=== PATIENT | male | born 1960 | race Caucasian/White ===

== ENCOUNTER 2017-02-25 05:55 | Day surgery (SDC) | payer OTHER ==
[~2017-02-25 05:55] MED LIST: FEROSUL325 M1 PO; OMEPRAZOLE20 M4 PO; ONDANSETRON HCL8 M1 PO; PROCHLORPERAZIN10 M1 PO; STOOL SOFTENER100 M2 PO; TYLENOL325 M2 PO; ZANTAC150 M1 PO
[2017-02-25 06:32] LABS: BASO % 0.8 % (0-2); EOS % 3.5 % (0-7); EOSINOPHIL ABSOLUTE COUNT 0.2 tho/cmm (0.0-0.7); HCT-HEMATOCRIT 44.2 % (36.0-53.5); HGB-HEMOGLOBIN 15.5 gm/dl (13.5-17.0); IMMATURE GRANULOCYTES ABSOLUTE 0.01 tho/cmm (0-0.03); IMMATURE GRANULOCYTES PERCENT 0.2 % (0-0.3); LYMPH % 25.1 % (20-45); LYMPH ABSOLUTE COUNT 1.3 tho/cmm (0.8-4.5); MCH (MEAN CORPUSCULAR HGB) 32.2 pg (28.0-32.0); MCHC MEAN CORPUSCULAR HGB CONC 35.1 % (32.0-36.0); MCV (MEAN CELL VOLUME) 91.7 fl (82.0-96.0); MEAN PLATELET VOLUME 8.3 cmc (9.4-12.4); MONOCYTE ABSOLUTE COUNT 1.1 tho/cmm (0.0-1.2); NEUTROPHIL ABSOLUTE COUNT 2.5 tho/cmm (1.6-8.0); NEUTROPHIL-AUTOMATED 2.5 tho/cmm (1.6-8.0); NEUTROPHILS % 49.4 % (40-80); PLATELET COUNT 165 tho/cmm (150-450); RED BLOOD COUNT 4.82 mil/cmm (4.40-5.70); RED CELL DISTRIBUTION WIDTH 14.6 % (12.4-16.4); WHITE BLOOD COUNT 5.1 tho/cmm (4.0-10.0)
[2017-02-25 06:36] LABS: PROTHROMBIN TIME 11.9 SECONDS (9.0-13.6)
[2017-06-03] MEDS ORDERED: OMEPRAZOLE20 M3 PO (15:54)
[2017-06-03] MEDS ORDERED: MULTIVITAMINS1 EAC7 PO (15:54)
[2017-06-03] MEDS ORDERED: TYLENOL EXTRA500 M1 PO (15:54)
[2017-07-21] MEDS ORDERED: STIVARGA40 MG PO (14:04)
[2017-07-23] MEDS ORDERED: COLACE100 M1 PO (12:07)
[2017-07-23] MEDS ORDERED: SENOKOT-S TABL1 EACH PO (12:08)
[2017-07-23] MEDS ORDERED: MILK OF MAGNESIA PO (12:08)
[2017-07-23] MEDS ORDERED: MORPHINE S20 MG/1 M1 PO (12:18)
== END 2017-02-25 12:25 ==
LOC: US 05:55 → SHSB 06:02
PROVIDERS: Radiology Diagnostic Radiology
PROC: 0FB13ZX Excision of Right Lobe Liver, Percutaneous Approach, Diagnostic (ICD-10-PCS; principal; 2017-02-25)
DX: C78.7 Secondary malignant neoplasm of liver and intrahepatic bile duct (principal); C18.2 Malignant neoplasm of ascending colon; M19.90 Unspecified osteoarthritis, unspecified site; K21.9 Gastro-esophageal reflux disease without esophagitis; R63.4 Abnormal weight loss; F41.9 Anxiety disorder, unspecified; K59.00 Constipation, unspecified; G62.0 Drug-induced polyneuropathy; Z68.1 Body mass index [BMI] 19.9 or less, adult; Z79.899 Other long term (current) drug therapy; Z87.891 Personal history of nicotine dependence; Z98.890 Other specified postprocedural states
CPT/HCPCS: J2250; J3010; J7030

== ENCOUNTER 2017-03-09 20:23 | Inpatient (IN) | payer OTHER ==
[2017-03-09 21:44] LABS: HCT-HEMATOCRIT 45.5 % (36.0-53.5); HGB-HEMOGLOBIN 16.2 gm/dl (13.5-17.0); MCH (MEAN CORPUSCULAR HGB) 31.9 pg (28.0-32.0); MCHC MEAN CORPUSCULAR HGB CONC 35.6 % (32.0-36.0); MCV (MEAN CELL VOLUME) 89.6 fl (82.0-96.0); MEAN PLATELET VOLUME 8.3 cmc (9.4-12.4); NEUTROPHIL-AUTOMATED 4.5 tho/cmm (1.6-8.0); PLATELET COUNT 191 tho/cmm (150-450); RED BLOOD COUNT 5.08 mil/cmm (4.40-5.70); RED CELL DISTRIBUTION WIDTH 14.1 % (12.4-16.4); WHITE BLOOD COUNT 6.9 tho/cmm (4.0-10.0)
[2017-03-09 21:59] LABS: ALB/GLOB RATIO 0.6 (0.8-2.0); ALBUMIN 3.4 g/dl (3.5-5.0); ALKALINE PHOSPHATASE 179 U/L (33-138); ALT/SGPT 24 U/L (12-78); BILIRUBIN,TOTAL 0.8 mg/dl (0.0-1.5); BLOOD UREA NITROGEN 17 mg/dl (6-24); CALCIUM 9.4 mg/dl (8.5-10.5); CARBON DIOXIDE-VENOUS 29 mmol/L (22-32); CHLORIDE 94 mmol/l (96-110); CREATININE 1.19 mg/dl (0.60-1.30); GLUCOSE 105 mg/dL (70-110); LIPASE 134 U/L (73-393); SODIUM 135 mmol/L (135-145); eGFR VALUE FOR BLACK 78 mL/Min
[2017-03-09 22:01] LABS: ANION GAP 16 mmol/L (0-20); AST/SGOT 62 U/L (10-40); POTASSIUM 3.5 mmol/L (3.7-5.1)
[2017-03-09 22:06] LABS: BAND % 1 % (0-20); BAND ABSOLUTE COUNT 0.1 tho/cmm (0-2.0)
[2017-03-10 05:16] LABS: BASO % 0.9 % (0-2); BASO ABSOLUTE COUNT 0.1 tho/cmm (0.0-0.2); EOS % 3.7 % (0-7); EOSINOPHIL ABSOLUTE COUNT 0.2 tho/cmm (0.0-0.7); HCT-HEMATOCRIT 40.6 % (36.0-53.5); HGB-HEMOGLOBIN 14.2 gm/dl (13.5-17.0); IMMATURE GRANULOCYTES ABSOLUTE 0.02 tho/cmm (0-0.03); IMMATURE GRANULOCYTES PERCENT 0.3 % (0-0.3); LYMPH % 13.2 % (20-45); LYMPH ABSOLUTE COUNT 0.9 tho/cmm (0.8-4.5); MCH (MEAN CORPUSCULAR HGB) 31.6 pg (28.0-32.0); MCV (MEAN CELL VOLUME) 90.4 fl (82.0-96.0); MEAN PLATELET VOLUME 8.3 cmc (9.4-12.4); MONO % 15.4 % (0-12); NEUTROPHIL ABSOLUTE COUNT 4.3 tho/cmm (1.6-8.0); NEUTROPHIL-AUTOMATED 4.3 tho/cmm (1.6-8.0); NEUTROPHILS % 66.5 % (40-80); PLATELET COUNT 157 tho/cmm (150-450); RED BLOOD COUNT 4.49 mil/cmm (4.40-5.70); RED CELL DISTRIBUTION WIDTH 14.4 % (12.4-16.4); WHITE BLOOD COUNT 6.4 tho/cmm (4.0-10.0)
[2017-03-10 05:25] LABS: ALB/GLOB RATIO 0.6 (0.8-2.0); ALBUMIN 2.7 g/dl (3.5-5.0); ALKALINE PHOSPHATASE 135 U/L (33-138); ALT/SGPT 21 U/L (12-78); ANION GAP 11 mmol/L (0-20); AST/SGOT 54 U/L (10-40); BILIRUBIN,TOTAL 0.9 mg/dl (0.0-1.5); BLOOD UREA NITROGEN 16 mg/dl (6-24); CALCIUM 8.5 mg/dl (8.5-10.5); CARBON DIOXIDE-VENOUS 29 mmol/L (22-32); CHLORIDE 99 mmol/l (96-110); CREATININE 0.81 mg/dl (0.60-1.30); GLUCOSE 98 mg/dL (70-110); POTASSIUM 3.5 mmol/L (3.7-5.1); SODIUM 135 mmol/L (135-145); eGFR VALUE FOR BLACK >90 mL/Min
[2017-03-11 05:45] LABS: HGB-HEMOGLOBIN 13.5 gm/dl (13.5-17.0); PLATELET COUNT 144 tho/cmm (150-450)
[2017-03-11 05:53] LABS: ANION GAP 14 mmol/L (0-20); BLOOD UREA NITROGEN 13 mg/dl (6-24); CALCIUM 8.1 mg/dl (8.5-10.5); CARBON DIOXIDE-VENOUS 23 mmol/L (22-32); CHLORIDE 105 mmol/l (96-110); CREATININE 0.68 mg/dl (0.60-1.30); GLUCOSE 78 mg/dL (70-110); MAGNESIUM 1.8 mg/dl (1.8-2.6); POTASSIUM 3.7 mmol/L (3.7-5.1); SODIUM 138 mmol/L (135-145); eGFR VALUE FOR BLACK >90 mL/Min
[2017-03-13 05:47] LABS: BASO % 0.1 % (0-2); EOS % 0.1 % (0-7); HCT-HEMATOCRIT 40.7 % (36.0-53.5); HGB-HEMOGLOBIN 14.2 gm/dl (13.5-17.0); IMMATURE GRANULOCYTES ABSOLUTE 0.05 tho/cmm (0-0.03); IMMATURE GRANULOCYTES PERCENT 0.4 % (0-0.3); LYMPH % 4.9 % (20-45); LYMPH ABSOLUTE COUNT 0.7 tho/cmm (0.8-4.5); MCH (MEAN CORPUSCULAR HGB) 31.4 pg (28.0-32.0); MCHC MEAN CORPUSCULAR HGB CONC 34.9 % (32.0-36.0); MEAN PLATELET VOLUME 8.3 cmc (9.4-12.4); MONO % 5.4 % (0-12); MONOCYTE ABSOLUTE COUNT 0.8 tho/cmm (0.0-1.2); NEUTROPHIL ABSOLUTE COUNT 12.5 tho/cmm (1.6-8.0); NEUTROPHIL-AUTOMATED 12.5 tho/cmm (1.6-8.0); NEUTROPHILS % 89.1 % (40-80); PLATELET COUNT 161 tho/cmm (150-450); RED BLOOD COUNT 4.52 mil/cmm (4.40-5.70); RED CELL DISTRIBUTION WIDTH 14.4 % (12.4-16.4); WHITE BLOOD COUNT 14.1 tho/cmm (4.0-10.0)
[2017-03-13 05:55] LABS: ANION GAP 12 mmol/L (0-20); BLOOD UREA NITROGEN 13 mg/dl (6-24); CARBON DIOXIDE-VENOUS 25 mmol/L (22-32); CHLORIDE 102 mmol/l (96-110); CREATININE 0.78 mg/dl (0.60-1.30); GLUCOSE 143 mg/dL (70-110); MAGNESIUM 1.5 mg/dl (1.8-2.6); POTASSIUM 4.1 mmol/L (3.7-5.1); SODIUM 135 mmol/L (135-145); eGFR VALUE FOR BLACK >90 mL/Min
[2017-03-14 06:10] LABS: BASO % 0.3 % (0-2); EOSINOPHIL ABSOLUTE COUNT 0.2 tho/cmm (0.0-0.7); IMMATURE GRANULOCYTES ABSOLUTE 0.03 tho/cmm (0-0.03); IMMATURE GRANULOCYTES PERCENT 0.4 % (0-0.3); LYMPH % 9.9 % (20-45); LYMPH ABSOLUTE COUNT 0.8 tho/cmm (0.8-4.5); MCV (MEAN CELL VOLUME) 91.4 fl (82.0-96.0); MEAN PLATELET VOLUME 8.5 cmc (9.4-12.4); MONO % 12.9 % (0-12); NEUTROPHIL ABSOLUTE COUNT 5.6 tho/cmm (1.6-8.0); NEUTROPHIL-AUTOMATED 5.6 tho/cmm (1.6-8.0); NEUTROPHILS % 73.5 % (40-80); PLATELET COUNT 130 tho/cmm (150-450); RED BLOOD COUNT 3.13 mil/cmm (4.40-5.70); RED CELL DISTRIBUTION WIDTH 14.5 % (12.4-16.4); WHITE BLOOD COUNT 7.6 tho/cmm (4.0-10.0)
[2017-03-14 06:12] LABS: HGB-HEMOGLOBIN 9.8 gm/dl (13.5-17.0); MCH (MEAN CORPUSCULAR HGB) 31.3 pg (28.0-32.0); MCHC MEAN CORPUSCULAR HGB CONC 34.3 % (32.0-36.0)
[2017-03-14 06:13] LABS: HCT-HEMATOCRIT 28.6 % (36.0-53.5)
[2017-03-14 06:24] LABS: ALT/SGPT 12 U/L (12-78); AST/SGOT 44 U/L (10-40); CHLORIDE 103 mmol/l (96-110); CREATININE 0.66 mg/dl (0.60-1.30); POTASSIUM 3.8 mmol/L (3.7-5.1); PREALBUMIN 3.9 mg/dl (20.0-40.0); SODIUM 135 mmol/L (135-145); eGFR VALUE FOR BLACK >90 mL/Min
[2017-03-14 07:01] LABS: ALB/GLOB RATIO 0.5 (0.8-2.0); ALBUMIN 1.8 g/dl (3.5-5.0); ALKALINE PHOSPHATASE 88 U/L (33-138); BILIRUBIN,TOTAL 0.5 mg/dl (0.0-1.5); BLOOD UREA NITROGEN 12 mg/dl (6-24); CALCIUM 7.7 mg/dl (8.5-10.5); CARBON DIOXIDE-VENOUS 23 mmol/L (22-32); GLUCOSE 96 mg/dL (70-110)
[2017-03-14 07:07] LABS: ANION GAP 13 mmol/L (0-20)
[2017-03-14 07:28] LABS: MAGNESIUM 1.6 mg/dl (1.8-2.6)
[2017-03-14 12:40] LABS: URINE BILIRUBIN NEGATIVE (NEG); URINE BLOOD SMALL (NEG); URINE GLUCOSE (UA) NEGATIVE (NEG); URINE KETONE NEGATIVE (NEG); URINE LEUKOCYTE ESTERASE POSITIVE (NEG); URINE NITRITE NEGATIVE (NEG); URINE PROTEIN SMALL (NEG)
[2017-03-14 12:42] LABS: URINE APPEARANCE CLEAR; URINE COLOR DARK YELLOW; URINE OTHER VOLUME 4 ML
[2017-03-14 12:47] LABS: URINE EPITHELIAL CELLS 0 /[HPF] (0-10); URINE MUCUS 1+
[2017-03-15 05:58] LABS: HGB-HEMOGLOBIN 12.3 gm/dl (13.5-17.0); PLATELET COUNT 149 tho/cmm (150-450)
[2017-03-15 06:33] LABS: BLOOD UREA NITROGEN 13 mg/dl (6-24); CALCIUM 7.5 mg/dl (8.5-10.5); CARBON DIOXIDE-VENOUS 23 mmol/L (22-32); CHLORIDE 103 mmol/l (96-110); CREATININE 0.52 mg/dl (0.60-1.30); GLUCOSE 96 mg/dL (70-110); SODIUM 135 mmol/L (135-145); eGFR VALUE FOR BLACK >90 mL/Min
[2017-03-15 06:40] LABS: ANION GAP 13 mmol/L (0-20); POTASSIUM 4.2 mmol/L (3.7-5.1)
[2017-03-16 06:19] LABS: ANION GAP 13 mmol/L (0-20); BLOOD UREA NITROGEN 14 mg/dl (6-24); CALCIUM 7.5 mg/dl (8.5-10.5); CARBON DIOXIDE-VENOUS 25 mmol/L (22-32); CHLORIDE 103 mmol/l (96-110); CREATININE 0.52 mg/dl (0.60-1.30); GLUCOSE 112 mg/dL (70-110); SODIUM 137 mmol/L (135-145); eGFR VALUE FOR BLACK >90 mL/Min
[2017-03-16 06:23] LABS: POTASSIUM 3.8 mmol/L (3.7-5.1)
[2017-03-17 06:13] LABS: BLOOD UREA NITROGEN 14 mg/dl (6-24); CALCIUM 7.8 mg/dl (8.5-10.5); CARBON DIOXIDE-VENOUS 25 mmol/L (22-32); CHLORIDE 101 mmol/l (96-110); CREATININE 0.53 mg/dl (0.60-1.30); GLUCOSE 110 mg/dL (70-110); PHOSPHOROUS 3.7 mg/dl (2.5-4.9); SODIUM 135 mmol/L (135-145); eGFR VALUE FOR BLACK >90 mL/Min
[2017-03-17 06:20] LABS: ANION GAP 13 mmol/L (0-20); MAGNESIUM 1.9 mg/dl (1.8-2.6); POTASSIUM 3.9 mmol/L (3.7-5.1)
[2017-03-18 05:07] LABS: BASO % 0.6 % (0-2); BASO ABSOLUTE COUNT 0.1 tho/cmm (0.0-0.2); EOS % 6.5 % (0-7); EOSINOPHIL ABSOLUTE COUNT 0.5 tho/cmm (0.0-0.7); HCT-HEMATOCRIT 33.4 % (36.0-53.5); HGB-HEMOGLOBIN 11.5 gm/dl (13.5-17.0); IMMATURE GRANULOCYTES ABSOLUTE 0.05 tho/cmm (0-0.03); IMMATURE GRANULOCYTES PERCENT 0.6 % (0-0.3); LYMPH % 8.3 % (20-45); LYMPH ABSOLUTE COUNT 0.7 tho/cmm (0.8-4.5); MCH (MEAN CORPUSCULAR HGB) 31.2 pg (28.0-32.0); MCHC MEAN CORPUSCULAR HGB CONC 34.4 % (32.0-36.0); MCV (MEAN CELL VOLUME) 90.5 fl (82.0-96.0); MEAN PLATELET VOLUME 8.5 cmc (9.4-12.4); MONO % 20.4 % (0-12); MONOCYTE ABSOLUTE COUNT 1.7 tho/cmm (0.0-1.2); NEUTROPHIL ABSOLUTE COUNT 5.3 tho/cmm (1.6-8.0); NEUTROPHIL-AUTOMATED 5.3 tho/cmm (1.6-8.0); NEUTROPHILS % 63.6 % (40-80); RED BLOOD COUNT 3.69 mil/cmm (4.40-5.70); RED CELL DISTRIBUTION WIDTH 13.7 % (12.4-16.4); WHITE BLOOD COUNT 8.3 tho/cmm (4.0-10.0)
[2017-03-18 05:14] LABS: PLATELET COUNT 235 tho/cmm (150-450)
[2017-03-18 05:23] LABS: ANION GAP 14 mmol/L (0-20); BLOOD UREA NITROGEN 16 mg/dl (6-24); CALCIUM 7.6 mg/dl (8.5-10.5); CARBON DIOXIDE-VENOUS 25 mmol/L (22-32); CHLORIDE 100 mmol/l (96-110); CREATININE 0.55 mg/dl (0.60-1.30); GLUCOSE 85 mg/dL (70-110); SODIUM 135 mmol/L (135-145); eGFR VALUE FOR BLACK >90 mL/Min
[2017-03-19] MEDS ORDERED: PERCOCET 5-3251 EACH PO (19:02)
[2017-06-03] MEDS ORDERED: OMEPRAZOLE20 M3 PO (15:54)
[2017-06-03] MEDS ORDERED: TYLENOL EXTRA500 M1 PO (15:54)
[2017-06-03] MEDS ORDERED: MULTIVITAMINS1 EAC7 PO (15:54)
[2017-07-21] MEDS ORDERED: STIVARGA40 MG PO (14:04)
[2017-07-23] MEDS ORDERED: COLACE100 M1 PO (12:07)
[2017-07-23] MEDS ORDERED: SENOKOT-S TABL1 EACH PO (12:08)
[2017-07-23] MEDS ORDERED: MILK OF MAGNESIA PO (12:08)
[2017-07-23] MEDS ORDERED: MORPHINE S20 MG/1 M1 PO (12:18)
== END 2017-03-19 20:00 | DRG 329 ==
LOC: EDMED 20:23 → EMR2 03-10 00:47 → 5WF 03-10 03:09 → ORW 03-12 16:23 → PACU 03-12 19:02 → 5WF 03-12 20:45
PROVIDERS: Emergency Medicine; Internal Medicine; Nurse Practitioner; Physician Assistant; ADMIT Internal Medicine
PROC: 0DTH0ZZ Resection of Cecum, Open Approach (ICD-10-PCS; principal; 2017-03-12)
PROC: 0WJP4ZZ Inspection of Gastrointestinal Tract, Percutaneous Endoscopic Approach (ICD-10-PCS; 2017-03-12)
PROC: 3E0336Z Introduction of Nutritional Substance into Peripheral Vein, Percutaneous Approach (ICD-10-PCS; 2017-03-13)
DX: C18.0 Malignant neoplasm of cecum (principal); E43 Unspecified severe protein-calorie malnutrition; N17.9 Acute kidney failure, unspecified; K56.60 Unspecified intestinal obstruction; C78.7 Secondary malignant neoplasm of liver and intrahepatic bile duct; K56.7 Ileus, unspecified; Z68.1 Body mass index [BMI] 19.9 or less, adult; C18.2 Malignant neoplasm of ascending colon; D64.9 Anemia, unspecified; K21.9 Gastro-esophageal reflux disease without esophagitis; E87.6 Hypokalemia; R74.0 Nonspecific elevation of levels of transaminase and lactic acid dehydrogenase [LDH]; D72.829 Elevated white blood cell count, unspecified
CPT/HCPCS: C9113; J1170; J1335; J1650; J1885; J2270; J2405; J2550; J3475; J3480; J7030; J7050; Q9967